=== PATIENT | female | born 1980 | race Caucasian/White ===

== ENCOUNTER 2019-04-21 18:42 | Inpatient (IN) | payer OTHER ==
[~2019-04-21] VITALS: Ht 165.1 cm; Wt 77.8 kg
[2019-04-21 20:59] LABS: BASOPHIL % 0.6 % (0-2)
[2019-04-21 21:01] LABS: RED CELL DISTRIBUTION WIDTH 15.7 % (11.5-14.5)
[2019-04-21 21:02] LABS: PLATELET COUNT 670 x10^3mcL (130-400)
[2019-04-21 21:03] LABS: CARBON DIOXIDE 14.5 mmol/L (21-32); POTASSIUM SERUM 7.5 mmol/L (3.5-5.1)
[2019-04-21 21:04] LABS: ALBUMIN 1.6 g/dL (3.4-5.0); BILIRUBIN TOTAL 0.49 mg/dL (0.20-1.00); CREATININE SERUM 19.5 mg/dL (0.6-1.0); TOTAL PROTEIN, SERUM 7.6 g/dL (6.4-8.2)
[2019-04-21 21:15] LABS: rbc morphology (normal/abnorm) ABNORMAL (NORMAL)
[2019-04-21 22:04] LABS: CARBON DIOXIDE 15.1 mmol/L (21-32); POTASSIUM SERUM 7.5 mmol/L (3.5-5.1)
[2019-04-21 22:05] LABS: CALCIUM 8.8 mg/dL (8.5-10.1); CREATININE SERUM 19.1 mg/dL (0.6-1.0)
[2019-04-22] VITALS (7 sets, daily range): BP systolic 130–176; BP diastolic 75–93
[2019-04-22 01:41] LABS: SODIUM SERUM 138 mmol/L (136-145)
[2019-04-22 01:44] LABS: CARBON DIOXIDE 13.7 mmol/L (21-32); CHLORIDE SERUM 101 mmol/L (98-107); GLUCOSE SERUM 77 mg/dL (74-106)
[2019-04-22 01:47] LABS: CALCIUM 9.2 mg/dL (8.5-10.1)
[2019-04-22 01:49] LABS: POTASSIUM SERUM 6.2 mmol/L (3.5-5.1)
[2019-04-22 01:50] LABS: CREATININE SERUM 18.1 mg/dL (0.6-1.0)
[2019-04-22 05:21] LABS: BASOPHIL % 2.5 % (0-2); PLATELET COUNT 591 x10^3mcL (130-400); RED CELL DISTRIBUTION WIDTH 15.1 % (11.5-14.5)
[2019-04-22 06:04] LABS: CARBON DIOXIDE 13.8 mmol/L (21-32)
[2019-04-22 06:05] LABS: MAGNESIUM 2.3 mg/dL (1.8-2.4)
[2019-04-22 06:06] LABS: POTASSIUM SERUM 7.6 mmol/L (3.5-5.1)
[2019-04-22 06:07] LABS: CREATININE SERUM 18.4 mg/dL (0.6-1.0); PHOSPHOROUS 11.6 mg/dL (2.5-4.9)
[2019-04-22 09:58] LABS: CARBON DIOXIDE 17.3 mmol/L (21-32)
[2019-04-22 09:59] LABS: BILIRUBIN TOTAL 0.49 mg/dL (0.20-1.00); CALCIUM 8.7 mg/dL (8.5-10.1); TOTAL PROTEIN, SERUM 6.7 g/dL (6.4-8.2)
[2019-04-22 10:00] LABS: POTASSIUM SERUM 6.7 mmol/L (3.5-5.1)
[2019-04-22 10:01] LABS: ALBUMIN 1.3 g/dL (3.4-5.0); CREATININE SERUM 18.3 mg/dL (0.6-1.0)
[2019-04-22] MEDS ORDERED: ELMIRON100 MG (10:32)
[2019-04-22] MEDS ORDERED: MOT400 (10:33)
[2019-04-22] MEDS ORDERED: FLOMAX0.4 MG PO (10:37)
[2019-04-22 13:53] LABS: CARBON DIOXIDE 23.7 mmol/L (21-32); POTASSIUM SERUM 4.1 mmol/L (3.5-5.1)
[2019-04-22 13:55] LABS: CREATININE SERUM 10.9 mg/dL (0.6-1.0)
[2019-04-22 13:56] LABS: ALBUMIN 1.4 g/dL (3.4-5.0); BILIRUBIN TOTAL 0.32 mg/dL (0.20-1.00); CALCIUM 8.1 mg/dL (8.5-10.1); TOTAL PROTEIN, SERUM 7.1 g/dL (6.4-8.2)
[2019-04-22 17:47] LABS: CARBON DIOXIDE 24.9 mmol/L (21-32)
[2019-04-22 17:48] LABS: ALBUMIN 1.4 g/dL (3.4-5.0); BILIRUBIN TOTAL 0.31 mg/dL (0.20-1.00); CALCIUM 8.2 mg/dL (8.5-10.1)
[2019-04-22 17:49] LABS: CREATININE SERUM 11.9 mg/dL (0.6-1.0)
[2019-04-23 03:09] VITALS: BP 157/86
[2019-04-23 05:04] LABS: BASOPHIL % 0.5 % (0-2)
[2019-04-23 05:07] LABS: RED CELL DISTRIBUTION WIDTH 15.8 % (11.5-14.5)
[2019-04-23 05:08] LABS: PLATELET COUNT 575 x10^3mcL (130-400)
[2019-04-23 05:14] LABS: CALCIUM 8.1 mg/dL (8.5-10.1); CARBON DIOXIDE 21.9 mmol/L (21-32)
[2019-04-23 05:15] LABS: MAGNESIUM 1.7 mg/dL (1.8-2.4); PHOSPHOROUS 8.8 mg/dL (2.5-4.9)
[2019-04-23 05:16] LABS: CREATININE SERUM 12.6 mg/dL (0.6-1.0); POTASSIUM SERUM 5.8 mmol/L (3.5-5.1)
[2019-04-23 07:00] VITALS: BP 143/88
[2019-04-23 09:53] VITALS: Ht 165.1 cm; Wt 77.8 kg
[2019-04-23 12:03] VITALS: BP 159/87
[2019-04-23 16:52] VITALS: BP 147/85
[2019-04-23 20:42] VITALS: BP 143/81
[2019-04-24 05:16] VITALS: BP 150/73
[2019-04-24 06:59] LABS: CALCIUM 7.9 mg/dL (8.5-10.1); CARBON DIOXIDE 25.1 mmol/L (21-32); CREATININE SERUM 9.2 mg/dL (0.6-1.0); MAGNESIUM 1.5 mg/dL (1.8-2.4); PHOSPHOROUS 7.7 mg/dL (2.5-4.9); POTASSIUM SERUM 5.1 mmol/L (3.5-5.1)
[2019-04-24 07:23] LABS: BASOPHIL % 0.3 % (0-2)
[2019-04-24 07:37] LABS: PLATELET COUNT 426 x10^3mcL (130-400); RED CELL DISTRIBUTION WIDTH 15.4 % (11.5-14.5)
[2019-04-24 08:45] VITALS: BP 150/93
[2019-04-24 11:24] LABS: rbc morphology (normal/abnorm) ABNORMAL (NORMAL)
[2019-04-24 13:02] VITALS: BP 162/92
[2019-04-24 17:08] LABS: PLATELET COUNT 398 x10^3mcL (130-400)
[2019-04-24 17:09] LABS: BASOPHIL % 0.6 % (0-2)
[2019-04-24 17:12] LABS: RED CELL DISTRIBUTION WIDTH 15.1 % (11.5-14.5)
[2019-04-24 17:25] VITALS: BP 147/85
[2019-04-24 18:00] LABS: rbc morphology (normal/abnorm) ABNORMAL (NORMAL)
[2019-04-24 20:45] VITALS: BP 166/82
[2019-04-25 05:50] VITALS: BP 154/84
[2019-04-25 07:04] LABS: BASOPHIL % 0.5 % (0-2); PLATELET COUNT 322 x10^3mcL (130-400)
[2019-04-25 07:13] LABS: RED CELL DISTRIBUTION WIDTH 15.1 % (11.5-14.5)
[2019-04-25 07:57] LABS: CARBON DIOXIDE 26.3 mmol/L (21-32); POTASSIUM SERUM 4.6 mmol/L (3.5-5.1)
[2019-04-25 07:58] LABS: CALCIUM 8.3 mg/dL (8.5-10.1); MAGNESIUM 1.7 mg/dL (1.8-2.4); PHOSPHOROUS 7.2 mg/dL (2.5-4.9); rbc morphology (normal/abnorm) NORMAL (NORMAL)
[2019-04-25 08:12] VITALS: BP 164/90
[2019-04-25 10:16] LABS: RED BLOOD CELLS 2.34 M/mm3 (4.10-5.10)
[2019-04-25 10:59] LABS: IRON 27 ug/dL (50-170); TOTAL IRON BINDING CAPACITY 166 ug/dL (250-450)
[2019-04-25 12:06] VITALS: BP 169/91
[2019-04-25 17:23] VITALS: BP 144/90
[2019-04-25 21:59] VITALS: BP 169/91
[2019-04-26 05:54] VITALS: BP 144/72
[2019-04-26 06:23] LABS: BASOPHIL % 0.5 % (0-2)
[2019-04-26 06:27] LABS: RED CELL DISTRIBUTION WIDTH 15.3 % (11.5-14.5)
[2019-04-26 06:28] LABS: PLATELET COUNT 420 x10^3mcL (130-400)
[2019-04-26 07:38] LABS: CALCIUM 8.2 mg/dL (8.5-10.1); CARBON DIOXIDE 27.9 mmol/L (21-32); CREATININE SERUM 7.1 mg/dL (0.6-1.0); MAGNESIUM 1.5 mg/dL (1.8-2.4); PHOSPHOROUS 5.7 mg/dL (2.5-4.9); POTASSIUM SERUM 4.3 mmol/L (3.5-5.1)
[2019-04-26 08:45] VITALS: BP 165/91
[2019-04-26 13:05] VITALS: BP 172/68
[2019-04-26 17:00] VITALS: BP 175/99
[2019-04-26 19:30] VITALS: BP 160/99
[2019-04-27 04:08] VITALS: BP 170/97
[2019-04-27 06:52] LABS: BASOPHIL % 0.3 % (0-2)
[2019-04-27 07:21] LABS: CARBON DIOXIDE 27.1 mmol/L (21-32); POTASSIUM SERUM 4.6 mmol/L (3.5-5.1)
[2019-04-27 07:22] LABS: CALCIUM 8.4 mg/dL (8.5-10.1); MAGNESIUM 1.8 mg/dL (1.8-2.4); PHOSPHOROUS 6.9 mg/dL (2.5-4.9)
[2019-04-27 07:24] LABS: PLATELET COUNT 413 x10^3mcL (130-400); RED CELL DISTRIBUTION WIDTH 15.2 % (11.5-14.5)
[2019-04-27 07:38] VITALS: BP 164/97
[2019-04-27 09:42] VITALS: BP 152/101
== END 2019-04-27 10:45 | disposition left against medical advice (07) | DRG 917 ==
LOC: ED 18:42 → IC 04-22 00:38 → DU 04-22 00:38 → IC 04-22 02:01 → DU 04-23 15:05
PROVIDERS: Emergency Medicine; Student in an Organized Health Care Education/Training Program; ADMIT Internal Medicine
PROC: 02HV33Z Insertion of Infusion Device into Superior Vena Cava, Percutaneous Approach (ICD-10-PCS; principal; 2019-04-22)
PROC: B548ZZA Ultrasonography of Superior Vena Cava, Guidance (ICD-10-PCS; 2019-04-22)
PROC: 30233N1 Transfusion of Nonautologous Red Blood Cells into Peripheral Vein, Percutaneous Approach (ICD-10-PCS; 2019-04-22)
PROC: 5A1D70Z Performance of Urinary Filtration, Intermittent, Less than 6 Hours Per Day (ICD-10-PCS; 2019-04-22)
PROC: 5A1D70Z Performance of Urinary Filtration, Intermittent, Less than 6 Hours Per Day (ICD-10-PCS; 2019-04-23)
PROC: 5A1D70Z Performance of Urinary Filtration, Intermittent, Less than 6 Hours Per Day (ICD-10-PCS; 2019-04-24)
PROC: 5A1D70Z Performance of Urinary Filtration, Intermittent, Less than 6 Hours Per Day (ICD-10-PCS; 2019-04-25)
PROC: 0JH63XZ Insertion of Tunneled Vascular Access Device into Chest Subcutaneous Tissue and Fascia, Percutaneous Approach (ICD-10-PCS; 2019-04-26)
PROC: 02HV33Z Insertion of Infusion Device into Superior Vena Cava, Percutaneous Approach (ICD-10-PCS; 2019-04-26)
PROC: B5181ZA Fluoroscopy of Superior Vena Cava using Low Osmolar Contrast, Guidance (ICD-10-PCS; 2019-04-26)
PROC: B548ZZA Ultrasonography of Superior Vena Cava, Guidance (ICD-10-PCS; 2019-04-26)
DX: T43.621A Poisoning by amphetamines, accidental (unintentional), initial encounter (principal); G92 Toxic encephalopathy; N17.0 Acute kidney failure with tubular necrosis; E43 Unspecified severe protein-calorie malnutrition; N18.6 End stage renal disease; J96.01 Acute respiratory failure with hypoxia; D62 Acute posthemorrhagic anemia; I12.0 Hypertensive chronic kidney disease with stage 5 chronic kidney disease or end stage renal disease; E87.5 Hyperkalemia; F15.10 Other stimulant abuse, uncomplicated; D47.3 Essential (hemorrhagic) thrombocythemia; N80.8 Other endometriosis; N30.10 Interstitial cystitis (chronic) without hematuria; E86.0 Dehydration; E11.22 Type 2 diabetes mellitus with diabetic chronic kidney disease; E83.39 Other disorders of phosphorus metabolism; E88.09 Other disorders of plasma-protein metabolism, not elsewhere classified; K59.00 Constipation, unspecified; Z99.2 Dependence on renal dialysis; Y92.89 Other specified places as the place of occurrence of the external cause
CPT/HCPCS: 36556; 82962; 87046; 87046-59; 87804; A4301; A4719; C9113; G0378; J0696; J1170; J1200; J1642; J1644; J1815; J1885; J2001; J2060; J2150; J2250; J2270; J2405; J2704; J2765; J3010; J3490; J7030; J7040; J7060; P9016; Q0092; Q0162; Q0163; Q9967

== ENCOUNTER 2019-04-27 12:03 | Inpatient (IN) | payer SELFPAY ==
[~2019-04-27] VITALS: Ht 165.1 cm; Wt 78.0 kg
[~2019-04-27 12:03] MED LIST: ELMIRON100 MG; FLOMAX0.4 MG PO; MOT400
[2019-04-27 12:21] VITALS: Ht 165.1 cm; Wt 78.0 kg
[2019-04-27 15:55] VITALS: BP 173/107
[2019-04-27 21:19] VITALS: BP 160/94
[2019-04-28 05:21] VITALS: BP 130/81
[2019-04-28 07:23] VITALS: BP 158/85
[2019-04-28 08:40] LABS: BASOPHIL % 0.2 % (0-2); PLATELET COUNT 379 x10^3mcL (130-400)
[2019-04-28 08:46] LABS: RED CELL DISTRIBUTION WIDTH 15.3 % (11.5-14.5)
[2019-04-28 08:57] LABS: CALCIUM 8.4 mg/dL (8.5-10.1); CARBON DIOXIDE 28.2 mmol/L (21-32); POTASSIUM SERUM 4.2 mmol/L (3.5-5.1)
[2019-04-28 12:15] VITALS: BP 167/104
[2019-04-28 15:14] VITALS: BP 154/94
[2019-04-28 19:17] VITALS: BP 158/103
[2019-04-28 22:00] VITALS: BP 136/92
[2019-04-29 04:46] VITALS: BP 163/102
[2019-04-29 05:39] VITALS: BP 152/92
[2019-04-29 07:15] LABS: BASOPHIL % 0.3 % (0-2); PLATELET COUNT 370 x10^3mcL (130-400)
[2019-04-29 07:47] LABS: RED CELL DISTRIBUTION WIDTH 15.1 % (11.5-14.5)
[2019-04-29 08:26] LABS: POTASSIUM SERUM 4.4 mmol/L (3.5-5.1)
[2019-04-29 08:27] LABS: CALCIUM 8.4 mg/dL (8.5-10.1); CARBON DIOXIDE 27.3 mmol/L (21-32); CREATININE SERUM 8.8 mg/dL (0.6-1.0)
[2019-04-29 08:30] VITALS: BP 169/108
[2019-04-29 12:06] VITALS: BP 140/94
[2019-04-29 16:32] VITALS: BP 191/122
[2019-04-29 21:10] VITALS: BP 144/85
[2019-04-30 05:58] VITALS: BP 150/94
[2019-04-30 08:30] VITALS: BP 169/104
[2019-04-30 12:30] VITALS: BP 143/98
[2019-04-30 16:52] LABS: BASOPHIL % 0.5 % (0-2); PLATELET COUNT 383 x10^3mcL (130-400); RED CELL DISTRIBUTION WIDTH 16.2 % (11.5-14.5)
[2019-04-30 17:01] LABS: CALCIUM 9.1 mg/dL (8.5-10.1); CARBON DIOXIDE 30.5 mmol/L (21-32); MAGNESIUM 1.6 mg/dL (1.8-2.4); PHOSPHOROUS 2.9 mg/dL (2.5-4.9); POTASSIUM SERUM 3.4 mmol/L (3.5-5.1)
[2019-04-30 17:07] LABS: CREATININE SERUM 4.5 mg/dL (0.6-1.0)
[2019-04-30 17:21] VITALS: BP 154/100
[2019-05-01 06:26] VITALS: BP 168/97
[2019-05-01 09:20] VITALS: BP 139/104
[2019-05-01] MEDS ORDERED: FER300 PO (13:57)
[2019-05-01] MEDS ORDERED: NOR5 PO (14:03)
[2019-05-01] MEDS ORDERED: ATA25 PO (14:04)
[2019-05-01] MEDS ORDERED: TOPIRAMATE25 M2 PO (14:05)
[2019-05-01] MEDS ORDERED: LAC PO (14:05)
[2019-05-01] MEDS ORDERED: COZ50 PO (14:54)
[2019-05-01 14:57] VITALS: BP 145/110
== END 2019-05-01 16:29 | disposition home or self-care (01) | DRG 917 ==
LOC: ED 12:03 → DU 14:12
PROVIDERS: ADMIT Student in an Organized Health Care Education/Training Program
PROC: 5A1D70Z Performance of Urinary Filtration, Intermittent, Less than 6 Hours Per Day (ICD-10-PCS; principal; 2019-04-27)
PROC: 5A1D70Z Performance of Urinary Filtration, Intermittent, Less than 6 Hours Per Day (ICD-10-PCS; 2019-04-29)
PROC: 5A1D70Z Performance of Urinary Filtration, Intermittent, Less than 6 Hours Per Day (ICD-10-PCS; 2019-04-30)
DX: T43.621A Poisoning by amphetamines, accidental (unintentional), initial encounter (principal); N17.0 Acute kidney failure with tubular necrosis; E43 Unspecified severe protein-calorie malnutrition; F15.20 Other stimulant dependence, uncomplicated; D62 Acute posthemorrhagic anemia; E87.5 Hyperkalemia; E83.39 Other disorders of phosphorus metabolism; E88.09 Other disorders of plasma-protein metabolism, not elsewhere classified; N80.8 Other endometriosis; F17.210 Nicotine dependence, cigarettes, uncomplicated; Z71.51 Drug abuse counseling and surveillance of drug abuser; Z79.899 Other long term (current) drug therapy; Y92.098 Other place in other non-institutional residence as the place of occurrence of the external cause
CPT/HCPCS: 99406; G0378; J0360; J1644; J2405; J7030

== ENCOUNTER 2019-05-04 21:00 | Inpatient (IN) | payer SELFPAY ==
[~2019-05-04] VITALS: Ht 162.6 cm; Wt 75.0 kg
[~2019-05-04 21:00] MED LIST changes: +ATA25 PO; +COZ50 PO; +FER300 PO; +LAC PO; +NOR5 PO; +TOPIRAMATE25 M2 PO
[2019-05-04 22:42] LABS: BASOPHIL % 0.5 % (0-2); PLATELET COUNT 334 x10^3mcL (130-400)
[2019-05-04 22:43] LABS: RED CELL DISTRIBUTION WIDTH 16.6 % (11.5-14.5)
[2019-05-04 22:56] LABS: BILIRUBIN TOTAL 0.5 mg/dL (0.20-1.00); CALCIUM 8.8 mg/dL (8.5-10.1); PHOSPHOROUS 7.3 mg/dL (2.5-4.9)
[2019-05-04 22:58] LABS: ALBUMIN 2.6 g/dL (3.4-5.0); TOTAL PROTEIN, SERUM 9.3 g/dL (6.4-8.2)
[2019-05-04 23:08] LABS: CREATININE SERUM 13.1 mg/dL (0.6-1.0); POTASSIUM SERUM 7.1 mmol/L (3.5-5.1)
[2019-05-04 23:46] LABS: CHOLESTEROL/HDL RATIO 3.9
[2019-05-05] VITALS (7 sets, daily range): BP systolic 138–162; BP diastolic 93–112; Ht 162.6 cm; Wt 75.0 kg
[2019-05-05 04:33] LABS: BASOPHIL % 0.1 % (0-2); PLATELET COUNT 283 x10^3mcL (130-400)
[2019-05-05 04:35] LABS: RED CELL DISTRIBUTION WIDTH 16.9 % (11.5-14.5)
[2019-05-05 05:04] LABS: CALCIUM 8.3 mg/dL (8.5-10.1); CARBON DIOXIDE 22.4 mmol/L (21-32); MAGNESIUM 2.5 mg/dL (1.8-2.4); PHOSPHOROUS 7.5 mg/dL (2.5-4.9)
[2019-05-05 05:13] LABS: CREATININE SERUM 13.7 mg/dL (0.6-1.0); POTASSIUM SERUM 8.4 mmol/L (3.5-5.1)
[2019-05-05 08:16] LABS: CARBON DIOXIDE 23.1 mmol/L (21-32)
[2019-05-05 08:20] LABS: CREATININE SERUM 14.1 mg/dL (0.6-1.0); POTASSIUM SERUM 7.7 mmol/L (3.5-5.1)
[2019-05-05 13:00] LABS: BASOPHIL % 0.7 % (0-2); PLATELET COUNT 277 x10^3mcL (130-400)
[2019-05-05 13:09] LABS: RED CELL DISTRIBUTION WIDTH 16.6 % (11.5-14.5)
[2019-05-05 13:30] LABS: CALCIUM 8.9 mg/dL (8.5-10.1); MAGNESIUM 1.8 mg/dL (1.8-2.4); POTASSIUM SERUM 3.7 mmol/L (3.5-5.1)
[2019-05-05 13:31] LABS: CREATININE SERUM 8.2 mg/dL (0.6-1.0)
[2019-05-06] VITALS (7 sets, daily range): BP systolic 139–161; BP diastolic 82–106
[2019-05-06 08:34] LABS: CALCIUM 8.4 mg/dL (8.5-10.1); CARBON DIOXIDE 24.1 mmol/L (21-32)
[2019-05-06 08:44] LABS: CREATININE SERUM 10.2 mg/dL (0.6-1.0)
[2019-05-06 08:45] LABS: POTASSIUM SERUM 5.8 mmol/L (3.5-5.1)
[2019-05-06 19:03] LABS: CARBON DIOXIDE 28.5 mmol/L (21-32); POTASSIUM SERUM 3.5 mmol/L (3.5-5.1)
[2019-05-06 19:13] LABS: CREATININE SERUM 5.7 mg/dL (0.6-1.0)
[2019-05-07 05:50] VITALS: BP 128/95
[2019-05-07 08:33] VITALS: BP 122/70
[2019-05-07 12:01] VITALS: BP 148/103
[2019-05-07 14:28] LABS: CALCIUM 8.6 mg/dL (8.5-10.1); CARBON DIOXIDE 25.1 mmol/L (21-32); POTASSIUM SERUM 5.4 mmol/L (3.5-5.1)
[2019-05-07 14:35] LABS: CREATININE SERUM 8.1 mg/dL (0.6-1.0)
[2019-05-07 16:46] VITALS: BP 132/88
[2019-05-07 20:16] VITALS: BP 146/93
[2019-05-08 05:48] VITALS: BP 133/78
[2019-05-08 08:46] VITALS: BP 165/110
[2019-05-08 12:12] LABS: BASOPHIL % 1.3 % (0-2); PLATELET COUNT 253 x10^3mcL (130-400)
[2019-05-08 12:20] LABS: RED CELL DISTRIBUTION WIDTH 16.8 % (11.5-14.5)
[2019-05-08 12:38] LABS: CALCIUM 9.1 mg/dL (8.5-10.1); CARBON DIOXIDE 24.6 mmol/L (21-32)
[2019-05-08 12:44] LABS: POTASSIUM SERUM 5.6 mmol/L (3.5-5.1)
[2019-05-08 12:46] VITALS: BP 148/95
[2019-05-08 12:46] LABS: CREATININE SERUM 9.6 mg/dL (0.6-1.0)
[2019-05-08 16:45] VITALS: BP 143/83
[2019-05-08 21:45] VITALS: BP 153/106
[2019-05-09 05:40] VITALS: BP 133/82
[2019-05-09 07:25] LABS: BASOPHIL % 1.2 % (0-2); CARBON DIOXIDE 27.9 mmol/L (21-32); PLATELET COUNT 242 x10^3mcL (130-400); POTASSIUM SERUM 4.9 mmol/L (3.5-5.1)
[2019-05-09 07:26] LABS: CALCIUM 8.7 mg/dL (8.5-10.1); CREATININE SERUM 7.1 mg/dL (0.6-1.0); MAGNESIUM 1.8 mg/dL (1.8-2.4); PHOSPHOROUS 5.8 mg/dL (2.5-4.9)
[2019-05-09 08:15] LABS: RED CELL DISTRIBUTION WIDTH 16.7 % (11.5-14.5)
[2019-05-09 09:13] VITALS: BP 139/102
[2019-05-09 13:54] VITALS: BP 137/104
[2019-05-09 17:01] VITALS: BP 142/101
[2019-05-09 20:39] VITALS: BP 154/94
[2019-05-10 05:02] VITALS: BP 145/100
[2019-05-10 06:13] VITALS: BP 134/89
[2019-05-10 07:17] LABS: CALCIUM 8.7 mg/dL (8.5-10.1); CARBON DIOXIDE 24.5 mmol/L (21-32); POTASSIUM SERUM 5.2 mmol/L (3.5-5.1)
[2019-05-10 07:21] LABS: CREATININE SERUM 8.7 mg/dL (0.6-1.0)
[2019-05-10 09:01] VITALS: BP 159/100
[2019-05-10 12:06] VITALS: BP 176/92
[2019-05-10 16:28] VITALS: BP 156/91
[2019-05-10 19:39] VITALS: BP 152/101
[2019-05-11 04:52] VITALS: BP 142/52
[2019-05-11 08:17] LABS: CALCIUM 8.9 mg/dL (8.5-10.1); CARBON DIOXIDE 26.6 mmol/L (21-32); POTASSIUM SERUM 4.9 mmol/L (3.5-5.1)
[2019-05-11 08:18] LABS: CREATININE SERUM 6.1 mg/dL (0.6-1.0)
[2019-05-11 08:25] LABS: BASOPHIL % 1.3 % (0-2); PLATELET COUNT 289 x10^3mcL (130-400)
[2019-05-11 08:29] LABS: RED CELL DISTRIBUTION WIDTH 16.9 % (11.5-14.5)
[2019-05-11 09:09] VITALS: BP 147/92
[2019-05-11 12:30] VITALS: BP 143/96
== END 2019-05-11 14:40 | disposition left against medical advice (07) | DRG 917 ==
LOC: ED 21:00 → DU 23:23 → IC 23:23 → DU 05-05 17:51 → MU 05-08 11:14
PROVIDERS: Emergency Medicine; Internal Medicine; ADMIT Family Medicine
PROC: 5A1D70Z Performance of Urinary Filtration, Intermittent, Less than 6 Hours Per Day (ICD-10-PCS; principal; 2019-05-05)
PROC: 5A1D70Z Performance of Urinary Filtration, Intermittent, Less than 6 Hours Per Day (ICD-10-PCS; 2019-05-06)
PROC: 5A1D70Z Performance of Urinary Filtration, Intermittent, Less than 6 Hours Per Day (ICD-10-PCS; 2019-05-08)
PROC: 5A1D70Z Performance of Urinary Filtration, Intermittent, Less than 6 Hours Per Day (ICD-10-PCS; 2019-05-10)
DX: T39.391A Poisoning by other nonsteroidal anti-inflammatory drugs [NSAID], accidental (unintentional), initial encounter (principal); J96.01 Acute respiratory failure with hypoxia; N18.6 End stage renal disease; G92 Toxic encephalopathy; N17.0 Acute kidney failure with tubular necrosis; E43 Unspecified severe protein-calorie malnutrition; I12.0 Hypertensive chronic kidney disease with stage 5 chronic kidney disease or end stage renal disease; D62 Acute posthemorrhagic anemia; E87.1 Hypo-osmolality and hyponatremia; E87.5 Hyperkalemia; F17.210 Nicotine dependence, cigarettes, uncomplicated; F12.90 Cannabis use, unspecified, uncomplicated; D72.829 Elevated white blood cell count, unspecified; E83.39 Other disorders of phosphorus metabolism; E11.22 Type 2 diabetes mellitus with diabetic chronic kidney disease; Z53.21 Procedure and treatment not carried out due to patient leaving prior to being seen by health care provider; E11.21 Type 2 diabetes mellitus with diabetic nephropathy; J44.9 Chronic obstructive pulmonary disease, unspecified; I16.0 Hypertensive urgency; D64.9 Anemia, unspecified; F15.10 Other stimulant abuse, uncomplicated; Z91.15 Patient's noncompliance with renal dialysis; Z72.89 Other problems related to lifestyle; Y92.89 Other specified places as the place of occurrence of the external cause; Z68.28 Body mass index [BMI] 28.0-28.9, adult; Z99.2 Dependence on renal dialysis; Z79.899 Other long term (current) drug therapy
CPT/HCPCS: 36600; 82962; 83880; 87804; G0378; J0360; J0610; J1644; J1815; J2060; J2405; J2543; J3490; J7030; J7040; J7050; Q0092; Q0177

== ENCOUNTER 2019-05-18 06:57 | Inpatient (IN) | payer MEDICAID ==
[~2019-05-18] VITALS: Ht 162.6 cm; Wt 68.6 kg
[2019-05-18 07:01] VITALS: Ht 162.6 cm; Wt 68.6 kg
[2019-05-18 07:56] LABS: BILIRUBIN TOTAL 0.4 mg/dL (0.20-1.00); CARBON DIOXIDE 14.8 mmol/L (21-32)
[2019-05-18 08:00] LABS: BASOPHIL % 0.7 % (0-2); PLATELET COUNT 334 x10^3mcL (130-400)
[2019-05-18 08:13] LABS: RED CELL DISTRIBUTION WIDTH 18.1 % (11.5-14.5)
[2019-05-18 08:34] LABS: CREATININE SERUM 19.2 mg/dL (0.6-1.0); TOTAL PROTEIN, SERUM 8.8 g/dL (6.4-8.2)
[2019-05-18 09:24] LABS: POTASSIUM SERUM 5.7 mmol/L (3.5-5.1)
[2019-05-18 11:18] VITALS: BP 169/105
[2019-05-18 16:00] VITALS: BP 154/93
[2019-05-18 16:11] LABS: CALCIUM 8.5 mg/dL (8.5-10.1); CARBON DIOXIDE 28.4 mmol/L (21-32); POTASSIUM SERUM 3.3 mmol/L (3.5-5.1)
[2019-05-18 16:14] LABS: CREATININE SERUM 10.8 mg/dL (0.6-1.0)
[2019-05-18 19:20] VITALS: BP 148/86
[2019-05-18 23:37] VITALS: BP 113/67
[2019-05-19 03:19] VITALS: BP 129/81
[2019-05-19 04:17] LABS: PLATELET COUNT 215 x10^3mcL (130-400)
[2019-05-19 04:19] LABS: RED CELL DISTRIBUTION WIDTH 18.4 % (11.5-14.5)
[2019-05-19 04:58] LABS: CALCIUM 8.2 mg/dL (8.5-10.1); CARBON DIOXIDE 29.6 mmol/L (21-32); MAGNESIUM 1.8 mg/dL (1.8-2.4); PHOSPHOROUS 7.9 mg/dL (2.5-4.9); POTASSIUM SERUM 4.3 mmol/L (3.5-5.1)
[2019-05-19 05:02] LABS: CREATININE SERUM 13.1 mg/dL (0.6-1.0)
[2019-05-19 08:00] VITALS: BP 139/92
[2019-05-19 12:00] VITALS: BP 141/87
[2019-05-19 16:00] VITALS: BP 141/97
[2019-05-19 20:56] VITALS: BP 127/79
[2019-05-20] VITALS (7 sets, daily range): BP systolic 135–154; BP diastolic 76–102
[2019-05-20 06:25] LABS: BASOPHIL % 1.3 % (0-2); PLATELET COUNT 216 x10^3mcL (130-400)
[2019-05-20 07:09] LABS: CALCIUM 8.5 mg/dL (8.5-10.1); CARBON DIOXIDE 28.4 mmol/L (21-32); MAGNESIUM 1.7 mg/dL (1.8-2.4); PHOSPHOROUS 5.6 mg/dL (2.5-4.9); POTASSIUM SERUM 4.1 mmol/L (3.5-5.1)
[2019-05-20 07:19] LABS: CREATININE SERUM 9.2 mg/dL (0.6-1.0)
[2019-05-21 06:06] VITALS: BP 150/99
[2019-05-21 06:28] LABS: BASOPHIL % 0.6 % (0-2); PLATELET COUNT 178 x10^3mcL (130-400)
[2019-05-21 07:20] LABS: CALCIUM 8.2 mg/dL (8.5-10.1); POTASSIUM SERUM 4.2 mmol/L (3.5-5.1)
[2019-05-21 07:23] LABS: CREATININE SERUM 11.4 mg/dL (0.6-1.0)
[2019-05-21 08:30] VITALS: BP 155/98
[2019-05-21 12:21] VITALS: BP 143/94
[2019-05-21 15:29] VITALS: BP 123/80
[2019-05-21 19:50] VITALS: BP 120/85
[2019-05-22 05:44] VITALS: BP 127/87
[2019-05-22 06:45] LABS: BASOPHIL % 0.7 % (0-2); PLATELET COUNT 199 x10^3mcL (130-400)
[2019-05-22 07:03] LABS: CALCIUM 8.6 mg/dL (8.5-10.1); CARBON DIOXIDE 27.2 mmol/L (21-32); POTASSIUM SERUM 4.5 mmol/L (3.5-5.1)
[2019-05-22 07:06] LABS: CREATININE SERUM 8.2 mg/dL (0.6-1.0)
[2019-05-22 07:34] LABS: RED CELL DISTRIBUTION WIDTH 19.4 % (11.5-14.5)
[2019-05-22 08:38] VITALS: BP 126/84
[2019-05-22 12:49] VITALS: BP 107/67
[2019-05-22 16:05] VITALS: BP 117/78
[2019-05-22 20:10] VITALS: BP 111/66
[2019-05-23 05:25] VITALS: BP 116/77
[2019-05-23 07:50] LABS: CALCIUM 9.1 mg/dL (8.5-10.1); CARBON DIOXIDE 26.1 mmol/L (21-32); POTASSIUM SERUM 4.5 mmol/L (3.5-5.1)
[2019-05-23 07:51] LABS: CREATININE SERUM 11.1 mg/dL (0.6-1.0)
[2019-05-23 08:12] LABS: BASOPHIL % 0.8 % (0-2); PLATELET COUNT 182 x10^3mcL (130-400)
[2019-05-23 08:23] LABS: RED CELL DISTRIBUTION WIDTH 19.1 % (11.5-14.5)
[2019-05-23 08:51] VITALS: BP 106/73
[2019-05-23 12:25] VITALS: BP 137/87
[2019-05-23 17:11] VITALS: BP 122/80
[2019-05-23 21:53] VITALS: BP 127/85
[2019-05-24 05:59] VITALS: BP 101/64
[2019-05-24 07:25] LABS: BASOPHIL % 0.8 % (0-2); PLATELET COUNT 182 x10^3mcL (130-400)
[2019-05-24 07:30] LABS: RED CELL DISTRIBUTION WIDTH 19.2 % (11.5-14.5)
[2019-05-24 07:54] LABS: CALCIUM 8.5 mg/dL (8.5-10.1); CARBON DIOXIDE 27.1 mmol/L (21-32); POTASSIUM SERUM 4.6 mmol/L (3.5-5.1)
[2019-05-24 07:58] LABS: CREATININE SERUM 7.3 mg/dL (0.6-1.0)
[2019-05-24 08:13] VITALS: BP 112/81
[2019-05-24 13:04] VITALS: BP 102/64
[2019-05-24] MEDS ORDERED: APR25 PO (16:37)
[2019-05-24] MEDS ORDERED: NOR10 PO (16:37)
[2019-05-24 17:29] VITALS: BP 102/64
[2019-05-24 20:35] VITALS: BP 94/70
== END 2019-05-24 21:31 | disposition home or self-care (01) | DRG 133 ==
LOC: ED 06:57 → IC 08:48 → DU 08:48 → MU 08:48 → EDBEDREQ 08:52 → IC 09:02 → DU 05-19 16:21 → MU 05-20 11:32
PROVIDERS: Emergency Medicine; Family Medicine; ADMIT Student in an Organized Health Care Education/Training Program
PROC: 5A1D70Z Performance of Urinary Filtration, Intermittent, Less than 6 Hours Per Day (ICD-10-PCS; principal; 2019-05-18)
PROC: 5A09357 Assistance with Respiratory Ventilation, Less than 24 Consecutive Hours, Continuous Positive Airway Pressure (ICD-10-PCS; 2019-05-18)
PROC: 5A1D70Z Performance of Urinary Filtration, Intermittent, Less than 6 Hours Per Day (ICD-10-PCS; 2019-05-19)
PROC: 5A1D70Z Performance of Urinary Filtration, Intermittent, Less than 6 Hours Per Day (ICD-10-PCS; 2019-05-21)
PROC: 5A1D70Z Performance of Urinary Filtration, Intermittent, Less than 6 Hours Per Day (ICD-10-PCS; 2019-05-23)
PROC: 5A1D70Z Performance of Urinary Filtration, Intermittent, Less than 6 Hours Per Day (ICD-10-PCS; 2019-05-24)
DX: J96.01 Acute respiratory failure with hypoxia (principal); I21.A1 Myocardial infarction type 2; G92 Toxic encephalopathy; E44.0 Moderate protein-calorie malnutrition; I13.2 Hypertensive heart and chronic kidney disease with heart failure and with stage 5 chronic kidney disease, or end stage renal disease; T43.621A Poisoning by amphetamines, accidental (unintentional), initial encounter; N18.6 End stage renal disease; E11.22 Type 2 diabetes mellitus with diabetic chronic kidney disease; I50.9 Heart failure, unspecified; E11.21 Type 2 diabetes mellitus with diabetic nephropathy; E87.5 Hyperkalemia; E87.70 Fluid overload, unspecified; N80.9 Endometriosis, unspecified; G89.29 Other chronic pain; F15.10 Other stimulant abuse, uncomplicated; D63.1 Anemia in chronic kidney disease; F17.210 Nicotine dependence, cigarettes, uncomplicated; Z91.15 Patient's noncompliance with renal dialysis; Z99.2 Dependence on renal dialysis; Z91.19 Patient's noncompliance with other medical treatment and regimen; Z91.14 Patient's other noncompliance with medication regimen; Z56.0 Unemployment, unspecified; Z68.29 Body mass index [BMI] 29.0-29.9, adult; Y92.89 Other specified places as the place of occurrence of the external cause
CPT/HCPCS: 36600; 83880; 87804; 94150; A4628; C9113; G0378; J1644; J1940; J2060; J2405; J2543; J3370; J3490; J7030; J7040; Q0092

== ENCOUNTER 2019-06-16 19:08 | Inpatient (IN) | payer MEDICAID ==
[~2019-06-16] VITALS: Ht 162.6 cm; Wt 72.1 kg
[~2019-06-16 19:08] MED LIST changes: +APR25 PO; +NOR10 PO
[2019-06-16 20:55] LABS: PLATELET COUNT 288 x10^3mcL (130-400); RED CELL DISTRIBUTION WIDTH 17.7 % (11.5-14.5)
[2019-06-16 21:06] LABS: BILIRUBIN TOTAL 0.4 mg/dL (0.20-1.00); CARBON DIOXIDE 20.6 mmol/L (21-32)
[2019-06-16 21:11] LABS: ALBUMIN 3.3 g/dL (3.4-5.0); POTASSIUM SERUM 5.8 mmol/L (3.5-5.1)
[2019-06-16 21:12] LABS: CREATININE SERUM 14.5 mg/dL (0.6-1.0)
[2019-06-16] MEDS ORDERED: HYDRALAZINE HCL25 MG PO (22:18)
[2019-06-16] MEDS ORDERED: NORVASC5 MG PO (22:19)
[2019-06-16] MEDS ORDERED: AMLODIPINE BESY10 M2 PO (22:48)
[2019-06-16 22:52] LABS: CHOLESTEROL/HDL RATIO 4.4; MAGNESIUM 2.4 mg/dL (1.8-2.4); PHOSPHOROUS 8.7 mg/dL (2.5-4.9)
[2019-06-16 22:57] LABS: T3 TOTAL 0.84 ng/mL
[2019-06-16 23:01] LABS: FREE T4 0.91 ng/dL (0.76-1.46); FREE THYROXINE INDEX 1.9 ug/dL (1.4-4.5); T4(THYROXINE) 5.4 ug/dL (4.7-13.3)
[2019-06-16 23:48] VITALS: BP 164/99
[2019-06-17 01:41] VITALS: BP 159/94
[2019-06-17 04:46] VITALS: BP 163/101
[2019-06-17 06:29] LABS: BASOPHIL % 0.6 % (0-2); PLATELET COUNT 300 x10^3mcL (130-400)
[2019-06-17 06:36] LABS: RED CELL DISTRIBUTION WIDTH 17.5 % (11.5-14.5)
[2019-06-17 06:51] LABS: CALCIUM 9.4 mg/dL (8.5-10.1); CARBON DIOXIDE 18.3 mmol/L (21-32)
[2019-06-17 08:00] LABS: POTASSIUM SERUM 6.4 mmol/L (3.5-5.1)
[2019-06-17 12:07] VITALS: BP 122/79
[2019-06-17 12:36] VITALS: BP 138/82
[2019-06-17 15:54] VITALS: BP 149/97
[2019-06-17 20:34] VITALS: BP 140/109
[2019-06-18 05:29] VITALS: BP 150/104
[2019-06-18 06:55] LABS: BASOPHIL % 1.1 % (0-2); PLATELET COUNT 314 x10^3mcL (130-400)
[2019-06-18 07:41] LABS: RED CELL DISTRIBUTION WIDTH 17.9 % (11.5-14.5)
[2019-06-18 07:55] LABS: CALCIUM 9.5 mg/dL (8.5-10.1); CARBON DIOXIDE 29.6 mmol/L (21-32); MAGNESIUM 2.1 mg/dL (1.8-2.4); PHOSPHOROUS 7.9 mg/dL (2.5-4.9)
[2019-06-18 08:54] VITALS: BP 155/102
[2019-06-18 12:09] VITALS: BP 141/91
[2019-06-18 16:20] VITALS: BP 143/91; BP 153/92
[2019-06-18 20:53] VITALS: BP 151/94
[2019-06-19 05:50] VITALS: BP 158/97
[2019-06-19 06:38] LABS: BASOPHIL % 1.7 % (0-2); PLATELET COUNT 310 x10^3mcL (130-400)
[2019-06-19 06:58] LABS: CARBON DIOXIDE 28.7 mmol/L (21-32); MAGNESIUM 1.7 mg/dL (1.8-2.4); PHOSPHOROUS 6.6 mg/dL (2.5-4.9); POTASSIUM SERUM 4.2 mmol/L (3.5-5.1)
[2019-06-19 07:09] LABS: CREATININE SERUM 6.8 mg/dL (0.6-1.0); RED CELL DISTRIBUTION WIDTH 16.8 % (11.5-14.5)
[2019-06-19 08:11] VITALS: BP 165/103
[2019-06-19 12:04] VITALS: BP 138/95
== END 2019-06-19 14:45 | disposition left against medical advice (07) | DRG 194 ==
LOC: ED 19:08 → DU 22:08 → MU 06-19 12:18
PROVIDERS: Emergency Medicine; Internal Medicine; ADMIT Family Medicine
PROC: 5A1D70Z Performance of Urinary Filtration, Intermittent, Less than 6 Hours Per Day (ICD-10-PCS; principal; 2019-06-17)
PROC: 5A1D70Z Performance of Urinary Filtration, Intermittent, Less than 6 Hours Per Day (ICD-10-PCS; 2019-06-18)
PROC: 5A1D70Z Performance of Urinary Filtration, Intermittent, Less than 6 Hours Per Day (ICD-10-PCS; 2019-06-19)
DX: I13.2 Hypertensive heart and chronic kidney disease with heart failure and with stage 5 chronic kidney disease, or end stage renal disease (principal); N18.6 End stage renal disease; E44.0 Moderate protein-calorie malnutrition; E87.5 Hyperkalemia; I50.9 Heart failure, unspecified; I16.0 Hypertensive urgency; N30.20 Other chronic cystitis without hematuria; D63.1 Anemia in chronic kidney disease; F15.10 Other stimulant abuse, uncomplicated; F17.210 Nicotine dependence, cigarettes, uncomplicated; Z91.15 Patient's noncompliance with renal dialysis; Z99.2 Dependence on renal dialysis; Z56.0 Unemployment, unspecified
CPT/HCPCS: 83880; 84439; 94150; 99406; G0378; J1644; J1815; J3490; J7030

== ENCOUNTER 2019-08-12 19:00 | Inpatient (IN) | payer OTHER ==
[~2019-08-12] VITALS: Ht 165.1 cm; Wt 69.7 kg
[~2019-08-12 19:00] MED LIST changes: +AMLODIPINE BESY10 M2 PO; +HYDRALAZINE HCL25 MG PO; +NORVASC5 MG PO
--- NOTE | 2019-08-12 19:35 | NUR ---
PT CAME TO ED CO SOB. PT STS SHE HAS MISSED HER DIALYSIS, PT STS THAT SHE FEELS THAT SHE HAS A LOT OF FLUID ON LUNGS. VSS. NO S/S OF DISTRESS. RESP E/U. PT TALKING IN COMPLETE SENTENCES. LUNG SOUNDS CLEAR. WILL CONTINUE TO MONITOR.
--- NOTE | 2019-08-12 19:37 | NUR ---
PT STS THAT SHE IS HAVING PROBLEMS WITH HER BOYFRIEND ON 4 YEARS. ASKED PT IF SHE THINKS SHE IS HAVING ANXIETY AT THIS TIME. PT STS SHE IS UNDER A LOT OF STRESS. PT STS SHE WOULD LIKE TO LEAVE, PT STS SHE HAS THE INFORMATION. PT DECLINED ANY MORE INFORMATION AT THIS TIME.
[2019-08-12 20:53] LABS: BASOPHIL % 1.5 % (0-2); PLATELET COUNT 234 x10^3mcL (130-400); RED CELL DISTRIBUTION WIDTH 14.4 % (11.5-14.5)
[2019-08-12 21:18] LABS: ALBUMIN 3.9 g/dL (3.4-5.0); BILIRUBIN TOTAL 0.4 mg/dL (0.20-1.00); CALCIUM 9.3 mg/dL (8.5-10.1); CARBON DIOXIDE 17.8 mmol/L (21-32)
[2019-08-12 21:32] LABS: TOTAL PROTEIN, SERUM 8.4 g/dL (6.4-8.2)
[2019-08-12 21:33] LABS: CREATININE SERUM 25.6 mg/dL (0.6-1.0); POTASSIUM SERUM 7.9 mmol/L (3.5-5.1)
--- NOTE | 2019-08-12 22:12 | NUR ---
ATTEMPTED IV BY MYSELF AND YARA BATES. UNABLE TO ESTABLISH IV ACCESS. MADE MD AWARE . STS AT THIS TIME HE DOESN'T HAVE TIME TO ATTEMPT ACCESS. PER MD WILL CALL ADMITTING STAFF, STS THEY NEED TO CALL IN DIALYSIS FOR PT. AT THIS TIME PER MD WILL CHANGE MEDICATION ORDER. RICHARDSON JANA STS HE WILL GIVE ONE MORE ATTEMPT TO START IV. WILL CONTINUE TO MONITOR.
--- NOTE | 2019-08-12 22:24 | NUR ---
SPOKE W/MD [place]. STS HE SPOKE WITH MD UPSTAIRS. AT THIS TIME WE NO LONGER NEED TO ATTEMPT IV INSERTION. PER ADMITTING MD, WILL HAVE DIALYSIS TEAM HERE WITH IN THE HOUR. PT MADE AWARE. RN RICHARDSON UNABLE TO GET ACCESS. WILL CONTINUE TO MONITOR.
--- NOTE | 2019-08-12 22:27 | NUR ---
MADE TWO ATTEMPTS AT IV PLACEMENT IN R ARM, UNSUCCESSFUL. REPORTED TO JANA HUTCHINSON.
--- NOTE | 2019-08-12 22:33 | NUR ---
PT SLEEPING ON GURNEY EASILY ARROUSEABLE. NO S/S OF DISTRESS. RESP E/U. WILL CONTINUE TO MONITOR.
--- NOTE | 2019-08-12 22:45 | NUR ---
PT MEDICATED PER ORDER. PT VERBALIZED UNDERSTANDING. SEE EMAR FOR DETAILS.
--- NOTE | 2019-08-12 22:46 | NUR ---
SPOKE TO PRIMARY EDUCATION PROFESSOR OLAYINKA REGARDING PT TRANSFER UPSTAIRS. JANA BHAGAT MADE AWARE THAT PT WILL BE TRANSFERED UPSTAIRS SOON BUT PT IS STILL CURRENTLY IN ED. PRIMARY JANA HYLTON MADE AWARE.
--- NOTE | 2019-08-12 22:55 | NUR ---
REPORT CALLED TO JANA BOWMAN TO ASSUME CARE OF PT. JANA AWARE THAT THERE IS NO IV ACCESS IN THE PT.
--- NOTE | 2019-08-12 23:00 | NUR ---
RECEIVED PT FROM ED VIA [facility], CAME IN DUE TO SOB. PT IS LETHARGIC, PUPILS ARE SLUGGISH, ABLE TO FOLLOW SIMPLE COMMANDS, ABLE TO STATE NAME, BIRTHDATE AND WHERE SHE IS AT THIS TIME. C/O MILD SOB, O2 SAT=96%, RA. LUNG SOUNDS DIMINISHED ON AUSCULTATION. DENIES COUGH. C/O 10/10 PRESSURE CHEST PAIN, NON-RADIATING, SR W/ ELEVATED T ON THE MONITOR. W/ SWELLING ON BUE AND BLE. PULSES ARE PALPABLE. DENIES ABDOMINAL DISCOMFORT. STATED THAT SHE DOES NOT URINATE ANYMORE. PT HAS RIGHT CHEST DIALYSIS CATHETER AND LUE AV SHUNT, BRUIT AND THRILL PRESENT. PT CANNOT REMEMBER HER LAST HD. NO IV ACCESS AT THIS TIME. W/ GENERALIZED BODY DISCOLORATIONS AND SCABS. C/O 10/10 GENERALIZED BODY PAIN. SIDE RAILS UPX2. CALL LIGHT ON REACH. HOB ELEVATED AT 60 DEG. BP-181/110. ENDORSED TO PRIMARY NURSE BARRERA FOR CONTINUITY OF CARE
--- NOTE | 2019-08-12 23:18 | NUR ---
PT TRANSFERRED TO TELE FLOOR ACCOMPANIED BY NURSE AND EMT. NO S/S OF DISTRESS. REPS E/U. PT CONNECTED TO MONITOR DURING TRANSFER.
[2019-08-12 23:20] VITALS: BP 181/110
[2019-08-12 23:35] VITALS: Ht 165.1 cm; Wt 69.7 kg
--- NOTE | 2019-08-13 00:19 | NUR ---
RECEIVED REPORT FROM THERESA ADMITTING NURSE, PT LETHARGIC, BUT OPEN EYES TO VERBAL STIMULI. NURSE OLAYINKA STARTING DIALYSIS AT THIS TIME. NO ACUTE DISTRESS NOTED. WILL CONT TO MONITOR.
--- NOTE | 2019-08-13 01:44 | NUR ---
ORDER FOR HEPARIN IV 5000 UNITS X2 ORDER PER [address] GARCIA FOR OLAYINKA STRANGE REQUEST FOR PERMA CATH POST DIALYSIS. MEDICATION GIVEN TO NURSE BHAGAT AT THIS TIME.
[2019-08-13 05:35] VITALS: BP 143/83
--- NOTE | 2019-08-13 05:55 | NUR ---
PT CONT TO BE LETHARGIC, RESPONDS TO VERBAL STIMULI. NO SIGNIFICANT CHANGES DURING SHIFT. DIALYSIS DONE WITH 2.6L OUT. ALL NEEDS ASSESSED AND ATTENDED TO. BED AT LOWEST SETTING. SIDE RAILS X2 UP. CALL LIGHT WITHING REACH. WILL CONT TO MONITOR AND ENDORSE CARE TO AM NURSE.
[2019-08-13 06:30] LABS: BASOPHIL % 0.7 % (0-2); PLATELET COUNT 224 x10^3mcL (130-400); RED CELL DISTRIBUTION WIDTH 14.1 % (11.5-14.5)
[2019-08-13 06:43] LABS: CALCIUM 9.2 mg/dL (8.5-10.1); CARBON DIOXIDE 24.9 mmol/L (21-32); MAGNESIUM 2.1 mg/dL (1.8-2.4); POTASSIUM SERUM 3.7 mmol/L (3.5-5.1)
[2019-08-13 06:48] LABS: CREATININE SERUM 15.8 mg/dL (0.6-1.0)
[2019-08-13 07:23] LABS: PHOSPHOROUS 9.8 mg/dL (2.5-4.9)
--- NOTE | 2019-08-13 07:28 | NUR ---
RECIEVED REPORT FROM [facility] NURSE. PATIENT CURRENTLY OBSERVED SLEEPING IN BED. RESPIRATIONS EVEN AND UNLABORED, SYMMETRICAL CHEST RISE AND FALL. IV TO THE RIGHT HAND CURRENTLY SALINE LOCKED. PATIENT RECIEVED DIALYSIS ON 08/12 IN THE HOSPITAL - 2.6 LITER OUT. RECIEVED CRITICAL VALUE REPORT FROM LAB [facility] CURRENTLY 9.8. RESIDENT PHYSICIAN DR. HERNANDEZ NOTIFIED. NO CHANGE IN ORDERS AT THIS TIME. WILL CONTINUE TO PROVIDE CARE FOR PATIENT.
[2019-08-13 08:26] VITALS: BP 128/91; BP 180/91
[2019-08-13] MEDS ORDERED: NORVASC10 MG PO (08:37)
[2019-08-13] MEDS ORDERED: HYDRALAZINE HCL25 MG PO (08:38)
[2019-08-13] MEDS ORDERED: ZOLOFT25 MG PO (08:39)
--- NOTE | 2019-08-13 09:25 | NUR ---
PATIENT APPEARS VERY LETHARGIC. PATIENT DOZES OFF MID CONVERSATION.
[2019-08-13 12:05] VITALS: BP 159/95
--- NOTE | 2019-08-13 13:54 | NUR ---
DIALYSIS NURSE YARA CONFIRMS 1.8 LITERS OF OUTPUT WITH DIALYSIS TODAY.
--- NOTE | 2019-08-13 15:38 | NUR ---
RECEIVED A CALL FROM MICHELLE(PHARMACIST IN CHARGE OWNER) AND SAYS DIALYSIS CENTER IS WILLING TO TAKE PT BACK FROM HD CENTER, HD CENTER IS REQUIRING A NEW HEP RENAL PANEL AND A COVID TEST PRIOR TO TAKING THE PT BACK. CALLED AND SPOKE TO (RESIDENT) ASSIGNED TO THIS PT AND MADE HIM AWARE OF ABOVE. SAYS HE WILL PUT THE ORDER IN.
[2019-08-13 16:50] VITALS: BP 169/87
--- NOTE | 2019-08-13 17:46 | NUR ---
PATIENT REMAINS SOMEWHAT LETHARGIC. PATIENT RESPONDS SPONTANEOUSLY TO VERBAL STIMULATION. PATIENT IS ORIENTED TO PERSON, PLACE, AND REASON FOR STAY. CURRENTLY AWAITING ONE FURTHER HD TREATMENT ORDERED FOR TOMORROW. ALSO, CURRENTLY ATTEMPTING TO ESTABLISH OUTPATIENT HD CHAIR TIME. CURRENTLY AWAITING COVID-19 SWAB AND HEPATITIS PANEL IN ORDER TO PLACE PATIENT FOR OUTPATIENT HD CHAIR TIME. RESPIRATIONS EVEN AND UNLABORED WITH SYMMETRICAL CHEST RISE AND FALL. PATIENT UNDERWENT HD TREATMENT TODAY AND 1.8 LITERS WERE REMOVED. WILL ENDORSE ALL FURTHER CARE TO NOC NURSE.
--- NOTE | 2019-08-13 19:00 | NUR ---
RECEIVED REPORT FROM ESTEFANI BATES. PT IS AAOX3 AND LETHARGIC. PT C/O MELARA, DENIES DIZZINESS. PT ON TELE #[id number], ST WITH ELEVATED T WAVE AND HR 105. PT DENIES CP/PRESSURE. PT PULSES PALPABLE AND CAP REFILL <3 SEC. PT LUNG SOUNDS CTA ON RA. PT DENIES SOB OR RESP DISTRESS. PT ABD SOFT/NONDISTENDED WITH ACTIVE BS X4. PT DENIES N/V/C/D. PT IS ANURIC. PT HAS GENERALIZED WEAKNESS. PT HAS DRY SCABS NOTED TO BUE AND BLE, DEVIKA. PT IV TO RH PATENT, INTACT, SL. CALL LIGHT WITHIN REACH. BED IN LOWEST POSITION. SIDE RAILS X2 UP. WILL CONTINUE TO MONITOR.
[2019-08-13 21:11] VITALS: BP 155/97
[2019-08-13 21:14] VITALS: BP 142/93
--- NOTE | 2019-08-14 02:53 | NUR ---
PT LETHARGIC AND SITTING UP IN BED AT THIS TIME. PT ASKS FOR ICE CHIPS AND SNACKS. ALL NEEDS MET AT THIS TIME. NO ACUTE DISTRESS NOTED. CALL LIGHT WITHIN REACH. BED IN LOWEST POSITION. SIDE RAILS X2 UP. WILL CONTINUE TO MONITOR.
[2019-08-14 05:26] VITALS: BP 142/95
--- NOTE | 2019-08-14 05:54 | NUR ---
PT RESTED COMFORTABLY WITH EYES CLOSED DURING THE NIGHT, EASILY AROUSABLE. NO ACUTE DISTRESS NOTED DURING THE SHIFT. ALL QUESTIONS AND CONCERNS ADDRESSED. COMFORT AND SAFETY MEASURES MAINTAINED. CALL LIGHT WITHIN REACH. BED IN LOWEST POSITION. SIDE RAILS X2 UP. WILL CONTINUE TO MONITOR. WILL ENDORSE CARE TO DAY SHIFT NURSE.
[2019-08-14 06:27] LABS: BASOPHIL % 1.3 % (0-2); PLATELET COUNT 238 x10^3mcL (130-400); RED CELL DISTRIBUTION WIDTH 14.5 % (11.5-14.5)
--- NOTE | 2019-08-14 07:28 | NUR ---
ENDORSED CARE TO TODD BATES. ALL QUESTIONS AND CONCERNS ADDRESSED.
[2019-08-14 07:56] LABS: CALCIUM 8.8 mg/dL (8.5-10.1); CARBON DIOXIDE 27.8 mmol/L (21-32); MAGNESIUM 1.9 mg/dL (1.8-2.4); POTASSIUM SERUM 4.2 mmol/L (3.5-5.1)
[2019-08-14 08:00] LABS: CREATININE SERUM 12.8 mg/dL (0.6-1.0)
[2019-08-14 08:36] LABS: PHOSPHOROUS 9.6 mg/dL (2.5-4.9)
[2019-08-14 08:47] VITALS: BP 152/92
--- NOTE | 2019-08-14 09:14 | NUR ---
PATIENT HAS BEEN WITH DIALYSIOS CATH TO THE CHEST ON THE RIGHT AND RIGHT UPPER ARM SHUNT. PATIENT HAS BEEN NON COMPLAINTS WITH HER DIALYSIS AND APPARENTLY MISSING 9 DAYS OF DIALYSIS PER REPORT. PATIENT HAS GENERAL WEAKNESS AND REQUESTED TO ASK FOR ASSIST WITH OOB INDICATED. SHE HAS STATES SHE WANTS TO LEAVE AND ADVISED SPEEDOMETER MECHANIC SHE WOULD LEAVE AMA. SO FAR SHE HAS STAYED AND NO ACUTE DISTRESS HAS BEEN NOTED. NOTED HER PHOS IS ELEVATED AND HER BUN AND CREATININE WELL NOTED TO BE HIGH. SHE IS LESS THAN YESTERDAY. EXPECTED FOR ANOTHER DIALYSIS TODAY. SHE HAS BEEN NO COMPLIANT WITH HER DIET AND FLUID RESTRICTIONS WELL.
--- NOTE | 2019-08-14 09:17 | NUR ---
PATIENT RECIEVED IN A DEEP SLEEP BUT NOW AWAKE AND WITH MODERATE GENERAL WEAKNESS AND SEEMS GROGGY. SHE HAS TOLERATE DDIET AND IS ASKING FOR MORE ICE CHIPS AT THIS TIME. SHE HAS MULTIPLE PACKAGES OF CANDIES ON HER BEDSIDE TABLE AND WITH HISTORY OF METH AMPHETAMINE USE AND NON COMPLIANCE WITH HER RENAL FAILURE NOTED. PATIENT HAS BEEN ON THE REANL DIET AND NO PAIN MEDIATIONS OTHER THAN THE TYLENOL. -
--- NOTE | 2019-08-14 10:05 | NUR ---
PATIENT WANTS FLUIDS AND ICE AND THEN ASKS FOR SOMETHING FOR PAIN OTHER THAN TYLENOL. SHE HAD ASKED LAST NIGHT WELL AND HAD WITH HER HER ONLY NORCO. SHE STATES THE DOCTOR AT [facility] DID NOT WANT HER TO HAVE TYLENOL OR MOTRIN ANYMORE. SHE IS PROBALLY NOT AWARE SHE IS TAKING THE TYLENOL IN NORCO AND OFTEN. ADVISED WILL REQUEST FROM THE STACK MATCHER INDICATED. PATIENT OOB AND TOLERATED WELL SO FAR.
--- NOTE | 2019-08-14 10:52 | NUR ---
PAGED THE [facility] FOR ORDERS AND TO LET THE [facility] KNOW ABOUT THE CRITICAL LABS. AWAITING CALL BACK AT THIS TIME.
--- NOTE | 2019-08-14 10:57 | NUR ---
MARY THE PAPER SHEETER CALLED BACK AND ADVISED NO PAIN MEDICATION IS INDICATED AND THE PATIENT TO HAVE DILAYSIS TODAY AND POSSIBLE DISCHARGE TOMORROW WITH PENDIN THE COVID AND HEP PANEL RETURN. PATIENT HAS INDICATED SHE WILL LEAVE AMA IF THE DIALYSIS DOES NOT TAKE PLACE SOON. PER MARY SHE DISCUSSED THE PLAN OF CARE EARLIER WITH THE PATIENT.
--- NOTE | 2019-08-14 12:21 | NUR ---
PER THE HRIS ANALYST THE PATIENT IS NOT GOING TO RECIEVE ANY MORE THAN TYELNOL FOR PAIN. PATIENT IS FOR DIALYSIS BUT NO NURSE HAS ARRIVED YET. PATIENT IS ANXIOUS AND WILL LEAVE SHE STATES. WILL TRY TO HOLD HER OFF FOR A LITTLE WHILE TILL AT LEAST SHE GETS HER DIALYSIS FOR TODAY. HRIS ANALYST AWARE OF THE PHOS AND THE BUN AND THE CHLORIDE.
[2019-08-14 13:45] VITALS: BP 146/91
--- NOTE | 2019-08-14 14:27 | NUR ---
DIALYSIS NURSE HERE FOR DIALYSIS. REQUESTED TO HOLD THE MEDICATIONS FOR NOW. PATIENT IS RESTING QUIETLY. WILL MONITOR INDICATED.
[2019-08-14 17:35] VITALS: BP 138/91
--- NOTE | 2019-08-14 18:20 | NUR ---
PATIENT HAS HAD DIALYSIS AND 2 LITERS REMOVED. PATIENT IS NOW ANXIOUS TO LEAAVE. SIGNED AMA PAPERWORK AND AWAITING FOR RIDE FOR DISCHARGE. GAVE BACKHER CIGARETTES AND WILL RETREAVE HER MEDICATION ON .
== END 2019-08-14 18:30 | disposition left against medical advice (07) | DRG 425 ==
LOC: ED 19:00 → DU 22:22
PROVIDERS: Emergency Medicine; Family Medicine; ADMIT Student in an Organized Health Care Education/Training Program
PROC: 5A1D70Z Performance of Urinary Filtration, Intermittent, Less than 6 Hours Per Day (ICD-10-PCS; principal; 2019-08-12)
PROC: 5A1D70Z Performance of Urinary Filtration, Intermittent, Less than 6 Hours Per Day (ICD-10-PCS; 2019-08-13)
PROC: 5A1D70Z Performance of Urinary Filtration, Intermittent, Less than 6 Hours Per Day (ICD-10-PCS; 2019-08-14)
DX: E87.5 Hyperkalemia (principal); E83.39 Other disorders of phosphorus metabolism; I12.0 Hypertensive chronic kidney disease with stage 5 chronic kidney disease or end stage renal disease; I12.9 Hypertensive chronic kidney disease with stage 1 through stage 4 chronic kidney disease, or unspecified chronic kidney disease; N18.6 End stage renal disease; Z91.19 Patient's noncompliance with other medical treatment and regimen; E87.70 Fluid overload, unspecified; Z99.2 Dependence on renal dialysis; I16.0 Hypertensive urgency; D64.9 Anemia, unspecified; F15.10 Other stimulant abuse, uncomplicated; Z53.29 Procedure and treatment not carried out because of patient's decision for other reasons; Z20.828 Contact with and (suspected) exposure to other viral communicable diseases
CPT/HCPCS: 83880; G0378; J0360; J1644; J2765; J7030; Q0092; Q0162